=== PATIENT | female | born 1940 | race Caucasian/White ===

== ENCOUNTER 2017-11-15 13:18 | Observation (INO) | payer MEDICARE ==
[~2017-11-15] VITALS: Ht 177.8 cm; Wt 67.6 kg
[~2017-11-15 13:18] MED LIST: ADVIL MIGRAI200 M1 PO; ALLEGRA-D 1212 HOUR PO; ALLEGRA-D 2424 HOUR PO; AMOX/K CLAV500 MG PO; ASPIRIN81 MG PO; AUGMENTIN500TAB PO; AURALGAN OT; BACTRIM DS1 TAB PO; CIPROFLOXACIN500 M1 PO; CIPROFLOXACN250 MG PO; DAIRY DIGES4500 UNI1 PO; FLONASE NASAL50 MCG; FOSAMAX70 MG PO; GINKOBA40 MG PO; LASIX 10 MG10 MG/TA1 PO; LORTAB5 PO; LOTRISONE TOP; MEDDOSEPAK OR; MEDDOSEPAK PO; MICRO-K10 ME1 PO; MIRAPEX0.5 MG PO; MOMETASONE0.1 % EX; OGEN0.625 MG PO; OGEN1.25 MG PO; OMEPRAZOLE40 MG PO; OXYCO/APAP1 TA5 OR; PERCOCET 5/325M1 TAB PO; PRILOSEC20 MG PO; PRILOSEC40 MG PO; TRAMADOL HCL50 MG PO; VITAMI16; VITAMIN B-1100 M1 PO; VITAMIN C1000 MG PO; VITAMIN E400 UNIT PO; XANAX0.25 MG PO; ZANTAC25 MG PO; ZITHROMAX250 MG PO; ZPAK PO; ZYRTEC-D AL1 OR; ZYRTEC10 M3 OR; [UNRECOGNIZED DRUG - OTHER] PO
--- NOTE | 2017-11-15 13:35 | NUR ---
PT TO ROOM 10 VIA WHEELCHAIR.
--- NOTE | 2017-11-15 13:55 | NUR ---
VERBAL ORDER FROM DR DALY TO GIVE 5 MG OF LABETOLOL DUE TO CURRENT BP.
[2017-11-15 13:59] LABS: HEMOGLOBIN 15.1 g/dl (12.0-16.0); IMMATURE GRANULOCYTES 0.3 % (0.0-1.0); MEAN CELL VOLUME 97.6 fL CALC (80.0-100.0); MEAN CORPUSCULAR HGB 33.5 pG CALC (26.0-32.0); MEAN CORPUSCULAR HGB CONC 34.3 g/L CALC (32.0-36.0); NEUT# 6.65 thou/uL (2.00-7.15); RED BLOOD COUNT 4.51 mill/uL (4.20-5.60); RED CELL DISTRI WIDTH 12.2 % (11.5-15.5)
--- NOTE | 2017-11-15 14:04 | NUR ---
WILL HOLD LABETOLOL 5 MG DUE TO BP 156/77. NOTIFIED.
[2017-11-15 14:16] LABS: ANION GAP 19 (6-22 (CALC)); BUN 20 mg/dL (8-23); BUN/CREATININE RATIO 17 (12-20 (CALC)); CARBON DIOXIDE 24 mmol/l (22-30); CHLORIDE 106 mmol/l (95-108); CREATININE 1.1 mg/dL (0.5-1.0); GFR 48 ML/MIN (>=60 (CALC)); GFR FOR AFR.AMER. 58 ML/MIN (>=60 (CALC)); POTASSIUM 3.6 mmol/l (3.5-5.1); SODIUM 146 mmol/l (137-146)
--- NOTE | 2017-11-15 14:25 | NUR ---
PT AMBULATED TO THE BATHROOM WITH A STEADY GAIT TO OBTAIN URINE SMAPLE.
--- NOTE | 2017-11-15 15:05 | NUR ---
SBAR PRINTED TO FLOOR
[2017-11-15] MEDS ORDERED: ESTROPIPATE1.5 MG PO (15:17)
[2017-11-15 15:26] LABS: URINE BILIRUBIN - DIPSTICK NEGATIVE (NEGATIVE); URINE BLOOD DIPSTICK NEGATIVE (NEGATIVE); URINE COLOR YELLOW; URINE GLUCOSE - DIPSTICK NEGATIVE (NEGATIVE); URINE KETONE NEGATIVE (NEGATIVE); URINE LEUK ESTERASE NEGATIVE (NEGATIVE); URINE NITRITE - DIPSTICK NEGATIVE (Negative); URINE PH 5.5 (4.5-8.0); URINE PROTEIN - DIPSTICK NEGATIVE (NEG-TRACE); URINE SPECIFIC GRAVITY 1.015; URINE UROBILINOGEN - DIPSTICK 0.2 E.U./dL (0.2)
[2017-11-15 15:27] LABS: URINE CLARITY CLEAR
--- NOTE | 2017-11-15 15:30 | NUR ---
PT DENIES ANY PAIN OR SOB AT THIS TIME AND IS AWARE OF PENDING ADMISSION. CALL FAIR WITHIN REACH, WILL CONTINUE TO MONITOR.
--- NOTE | 2017-11-15 15:50 | NUR ---
REPORT CALLED TO NILS WHITE.
--- NOTE | 2017-11-15 15:58 | NUR ---
Admission Note Report Given to: SBAR PRINTED TO FLOOR Transported by: Wheelchair X Stretcher Transported with: X Nurse Transporter X Patent IV O2 X Stave Cutting Supervisor
--- NOTE | 2017-11-15 16:15 | NUR ---
PT CAME FROM ER VIA STRETCHER BY NILS PATEL. PATIENT ACCOUNT REPRESENTATIVE IN ROOM TO ASSIST PT TO BED.
[2017-11-15 16:16] VITALS: BP 169/94
--- NOTE | 2017-11-15 16:45 | NUR ---
ORIENTED PT TO CALL LIGHT AND SAFETY PRECAUTIONS REINFORCED. PT VERBALIZED UNDERSTANDING. CALL LIGHT IN REACH.
--- NOTE | 2017-11-15 18:14 | NUR ---
ASSESSMENT DONE AND TELE IN PLACE. RESPS EVEN AND UNLABORED. # 22 LAC THAT APPEARS HEALTHY. O2 AT 2L/MIN VIA NC.
--- NOTE | 2017-11-15 19:20 | NUR ---
REPORT RECEIVED FROM NILS WHITE;PT RESTING AT BEDSIDE WITH VISITOR;INTRODUCED SELF TO PT AND POC DICUSSED;PT VOICES NO NEEDS OR DISCOMFORTS;PT ENCOURAGED TO EXPRESS CONCERNS;WILL CONTINUE TO MONITOR
[2017-11-15 19:35] VITALS: BP 170/83
--- NOTE | 2017-11-15 20:30 | NUR ---
PT RESTING IN SEMI FOWLERS POSITION;A&O X3;RESPIRATIONS EVEN AND UNLABORED ON HUM OXYGEN @ 2L VIA NC,CLEAR/DIMINISHED LUNG SOUNDS NOTED;PT REPORTS NOT BEING O2 DEPENDENT;ABDOMEN SOFT ON PALPATION AND ACTIVE IN ALL 4 QUADS;STRONG PEDAL PULSES;TELE MONITOR IN PLACE;#22G TO LAC FLUSHED AND PATENT,SITE APPEARS HEALTHY;CURRENT BP 105/66 HR 80;@2100 APRESOLINE 25MG PO HELD AT THIS TIME;SKIN INTACT;PT VOICES NO COMPLAINTS OF PAIN OR DISCOMFORTS;ENCOURAGED TO CALL FOR ASSISTANCE IF NEEDED;CALL LIGHT IN REACH;WILL CONTINUE TO MONITOR
--- NOTE | 2017-11-15 22:00 | NUR ---
CURRENT BP 86/59 HR 69;@2200 CLONIDINE 0.2MG PO HELD
[2017-11-16 00:10] VITALS: BP 90/58
--- NOTE | 2017-11-16 00:10 | NUR ---
PT RESTING IN BED WITH INEZ MCCLELLAND AT BEDSIDE OBTAINING VS;CURRENT MANUAL BP 90/58 HR 62;TELE MONITOR IN PLACE;PT VOICES NO COMPLAINTS OF PAIN;RESPIRATIONS EVEN AND UNLABORED ON HUM OXYGEN @ 2L;PT ENCOURAGED TO CALL FOR ASSISTANCE IF NEEDED;CALL LIGHT WITHIN REACH;WILL CONTINUE TO MONITOR
[2017-11-16 04:45] VITALS: BP 100/64
--- NOTE | 2017-11-16 05:10 | NUR ---
PT APPEARS TO BE SLEEPING IN SUPINE POSITION,WAKES EASILY;PT DENIES ANY PAIN OR DISCOMFORTS;TELE MONITOR IN PLACE;RESPIRATIONS EVEN AND UNLABORED ON OXYGEN;WILL CONTINUE TO MONITOR
--- NOTE | 2017-11-16 06:28 | NUR ---
PT TO XRAY VIA WC IN STABLE CONDITION ACCOMPANIED BY INEZ BINGHAM
[2017-11-16 06:41] LABS: HEMOGLOBIN 14.4 g/dl (12.0-16.0); IMMATURE GRANULOCYTES 0.2 % (0.0-1.0); MEAN CORPUSCULAR HGB 33.5 pG CALC (26.0-32.0); MEAN CORPUSCULAR HGB CONC 33.5 g/L CALC (32.0-36.0); NEUT# 4.36 thou/uL (2.00-7.15); RED BLOOD COUNT 4.3 mill/uL (4.20-5.60); RED CELL DISTRI WIDTH 12.4 % (11.5-15.5)
[2017-11-16 06:55] LABS: ALBUMIN 4.2 g/dL (3.2-5.0); BILIRUBIN, TOTAL 0.6 mg/dL (0.0-1.4); CHOLESTEROL HDL RATIO 3.7 (<4.4 (CALC)); CREATININE 1.3 mg/dL (0.5-1.0); TOTAL PROTEIN 7.1 g/dL (6.3-8.2)
[2017-11-16 07:35] VITALS: BP 84/57
--- NOTE | 2017-11-16 07:35 | NUR ---
PT RESTING IN BED, ALERT AND OREITNED, COMPLAINTS OF MILD HEADACHE WILL MEDICATE ORDERED, AM ASSESSMENT COMPLETED SEE INTERVENTIONS TELE INTAKE AND MONITOR READING SR RATE IN THE 60'S SKIN WARM AND DRY, PT ASYMPTOMATICALLY HYPOTENSIVE, WILL NOTIFY MD ON AM ROUNDS, RLEATED TO SCHEDULED ANTIHYPERTENSIVES, SALINE LOCK INTACT IN LAC, TOLERATING NC AT 2L, PT DENIES WEARING O2 AT HOME AND DENIES SOB, O2 REMAINS IN USE RELATED TO CARDIAC PROTOCOL, CALLBELL WITHIN REACH, SAFETY MEASURES REINFORCED, WILL CONTINUE TO MONITOR.
--- NOTE | 2017-11-16 09:45 | NUR ---
PT AMBULATES TO BATHROOM WITH STRONG STEADY GAIT INDEPENDENTLY, CONTINENT OF CHENG URINE AND PROVIDES SELF ARTHUR CARE, BACK TO BED AND CALL FAIR WITHIN REACH, AWARE OF BP AND APRESOLINE AND CATAPRES CURRENTLY ON HOLD, WILL CONTINUE TO MONITOR
[2017-11-16 11:00] VITALS: BP 96/51
--- NOTE | 2017-11-16 13:50 | NUR ---
PT RESTING IN BED, OFFERS NO NEW COMPLAINTS, COMFORT MEASURES PROVIDED, WILL CONTINUE TO MONITOR
--- NOTE | 2017-11-16 14:46 | NUR ---
PT RESTING IN BED, STATES HEADACHE MUCH IMPROVED, CALL FAIR WITHIN REAC
[2017-11-16 16:00] VITALS: BP 108/52
--- NOTE | 2017-11-16 17:07 | NUR ---
PT RESTING IN BED, AMBULATES IN ROOM AND TO BATHROOM WITH STRONG STEADY GAIT, READING MAGAZINE INTERITTENLY, CONTINUES TO DENY HEADACHE, CALL FAIR WITHIN REACH
[2017-11-16] MEDS ORDERED: ALPRAZOLAM0.5 MG PO (17:43)
--- NOTE | 2017-11-16 18:28 | NUR ---
IN TO SEE PATIENT EARLIER AND D/C ORDERS GIVEN, PT DRESSED SELF AND D/C INSTRUCTINS DISCUSSED IV SITE REMOVED INTACT EARLIER, PT TOLERATED WELL AND ALL QUESTIONS ANSWERED. AWAITING W/C TO TRASNPORT TO RIDE WAITING DOWNSTAIRS.
--- NOTE | 2017-11-16 18:33 | NUR ---
Discharge instructions given. Patient verbalizes understanding of same. Discharged in stable condition via Wheelchair to Home with family. All belongings sent with pt. SCRIPT FOR XANAX SENT WITH PT.
== END 2017-11-16 18:33 | disposition home or self-care (01) ==
LOC: ED 13:18 → ED-I 14:50 → ED 15:05 → MS2 15:06
PROVIDERS: Family Medicine; ADMIT Internal Medicine Geriatric Medicine; ATTEND Internal Medicine Geriatric Medicine
DX: R07.89 Other chest pain (principal); R42 Dizziness and giddiness; I10 Essential (primary) hypertension; K21.9 Gastro-esophageal reflux disease without esophagitis; F41.9 Anxiety disorder, unspecified; F32.9 Major depressive disorder, single episode, unspecified; M19.90 Unspecified osteoarthritis, unspecified site; E03.9 Hypothyroidism, unspecified; K27.9 Peptic ulcer, site unspecified, unspecified as acute or chronic, without hemorrhage or perforation; M54.5 Low back pain; G89.29 Other chronic pain

== ENCOUNTER 2017-11-29 01:08 | Emergency (ER) | payer MEDICARE ==
[~2017-11-29] VITALS: Ht 177.8 cm; Wt 68.2 kg
[~2017-11-29 01:08] MED LIST changes: +ALPRAZOLAM0.5 MG PO; +ESTROPIPATE1.5 MG PO
[2017-11-29 01:55] LABS: INFLUENZA A NONE DETECTED (NONE DETECT); INFLUENZA B NONE DETECTED (NONE DETECT)
[2017-11-29 02:09] LABS: HEMATOCRIT 37.6 % (37.0-47.0); HEMOGLOBIN 12.7 g/dl (12.0-16.0); IMMATURE GRANULOCYTES 0.3 % (0.0-1.0); MEAN CELL VOLUME 98.4 fL CALC (80.0-100.0); MEAN CORPUSCULAR HGB 33.2 pG CALC (26.0-32.0); MEAN CORPUSCULAR HGB CONC 33.8 g/L CALC (32.0-36.0); NEUT# 8.51 thou/uL (2.00-7.15); RED BLOOD COUNT 3.82 mill/uL (4.20-5.60); RED CELL DISTRI WIDTH 12.3 % (11.5-15.5)
[2017-11-29 02:19] LABS: ALBUMIN 3.9 g/dL (3.2-5.0); ALKALINE PHOSPHATASE 115 u/l (38-126); ANION GAP 17 (6-22 (CALC)); BILIRUBIN, TOTAL 0.4 mg/dL (0.0-1.4); BUN 18 mg/dL (8-23); BUN/CREATININE RATIO 19 (12-20 (CALC)); CARBON DIOXIDE 23 mmol/l (22-30); CHLORIDE 108 mmol/l (95-108); GFR 54 ML/MIN (>=60 (CALC)); GFR FOR AFR.AMER. > 60 ML/MIN (>=60 (CALC)); POTASSIUM 3.7 mmol/l (3.5-5.1); SGOT/AST 23 u/l (9-36); SGPT/ALT 19 u/l (11-66); SODIUM 144 mmol/l (137-146); TOTAL PROTEIN 6.7 g/dL (6.3-8.2)
[2017-11-29 02:33] LABS: MYOGLOBIN 40 ng/mL (0 - 62)
[2017-11-29] MEDS ORDERED: CEPHALEXIN500 MG PO (03:05)
[2017-11-29] MEDS ORDERED: ROBITUSSIN AC10 ML PO (03:05)
[2017-11-29] MEDS ORDERED: FLONASE AL50 MCG/ACT (03:52)
[2017-11-29 04:09] VITALS: BP 138/75
== END 2017-11-29 04:18 | disposition home or self-care (01) ==
LOC: ED 01:08
PROVIDERS: Emergency Medicine
DX: J06.9 Acute upper respiratory infection, unspecified (principal); I10 Essential (primary) hypertension; R05 Cough; R50.9 Fever, unspecified

== ENCOUNTER 2018-02-14 11:19 | Inpatient (IN) | payer MEDICARE ==
[~2018-02-14] VITALS: Ht 167.6 cm; Wt 62.8 kg
[~2018-02-14 11:19] MED LIST changes: +ADULT ASPIRIN R81 MG PO; +CALCIUM/D600 M3 PO; +CEPHALEXIN500 MG PO; +E 10001000 UNIT PO; +FLONASE AL50 MCG/ACT; +GINKGO BILOB60 MG PO; +LASIX 20 MG TAB20 MG PO; +ROBITUSSIN AC10 ML PO; +VITAMIN A PO
[2018-02-14 11:55] VITALS: BP 107/69
[2018-02-14 12:40] LABS: HEMATOCRIT 30.1 % (37.0-47.0); HEMOGLOBIN 9.5 g/dl (12.0-16.0); IMMATURE GRANULOCYTES 1.3 % (0.0-1.0); MEAN CELL VOLUME 97.7 fL CALC (80.0-100.0); MEAN CORPUSCULAR HGB 30.8 pG CALC (26.0-32.0); MEAN CORPUSCULAR HGB CONC 31.6 g/L CALC (32.0-36.0); NEUT# 6.58 thou/uL (2.00-7.15); RED BLOOD COUNT 3.08 mill/uL (4.20-5.60); RED CELL DISTRI WIDTH 13.9 % (11.5-15.5)
[2018-02-14 12:54] LABS: ALBUMIN 3.8 g/dL (3.2-5.0); ALKALINE PHOSPHATASE 126 u/l (38-126); ANION GAP 19 (6-22 (CALC)); BILIRUBIN, TOTAL 0.9 mg/dL (0.0-1.4); BUN 14 mg/dL (8-23); BUN/CREATININE RATIO 15 (12-20 (CALC)); CARBON DIOXIDE 25 mmol/l (22-30); CHLORIDE 99 mmol/l (95-108); GFR 53 ML/MIN (>=60 (CALC)); GFR FOR AFR.AMER. > 60 ML/MIN (>=60 (CALC)); POTASSIUM 4.5 mmol/l (3.5-5.1); SGOT/AST 16 u/l (9-36); SGPT/ALT 24 u/l (11-66); SODIUM 139 mmol/l (137-146); TOTAL PROTEIN 7.7 g/dL (6.3-8.2)
[2018-02-14 14:03] LABS: URINE BILIRUBIN - DIPSTICK NEGATIVE (NEGATIVE); URINE BLOOD DIPSTICK NEGATIVE (NEGATIVE); URINE COLOR YELLOW; URINE GLUCOSE - DIPSTICK NEGATIVE (NEGATIVE); URINE KETONE NEGATIVE (NEGATIVE); URINE LEUK ESTERASE SMALL (Negative); URINE NITRITE - DIPSTICK POSITIVE (Negative); URINE PH 5.5 (4.5-8.0); URINE PROTEIN - DIPSTICK NEGATIVE (NEG-TRACE); URINE UROBILINOGEN - DIPSTICK 0.2 E.U./dL (0.2)
[2018-02-14 14:07] LABS: URINE CLARITY CLOUDY
[2018-02-14 14:08] LABS: URINE AMORPH SEDIMENT MANY hpf (NONE-FEW); URINE BACTERIA MODERATE hpf; URINE EPITHELIAL CELLS MODERATE EPI/hpf (0-FEW)
[2018-02-14] MEDS ORDERED: METOPROL TAR25 M1 PO (14:27)
[2018-02-14] MEDS ORDERED: HYDROCO/APAP1 T11 PO (14:28)
[2018-02-14] MEDS ORDERED: ALPRAZOLAM ER0.5 MG PO (14:30)
[2018-02-14 15:23] VITALS: BP 111/59
[2018-02-14 18:26] LABS: HEMATOCRIT 30.8 % (37.0-47.0); HEMOGLOBIN 9.6 g/dl (12.0-16.0); IMMATURE GRANULOCYTES 0.4 % (0.0-1.0); MEAN CELL VOLUME 98.1 fL CALC (80.0-100.0); MEAN CORPUSCULAR HGB 30.6 pG CALC (26.0-32.0); MEAN CORPUSCULAR HGB CONC 31.2 g/L CALC (32.0-36.0); NEUT# 6.05 thou/uL (2.00-7.15); RED BLOOD COUNT 3.14 mill/uL (4.20-5.60); RED CELL DISTRI WIDTH 14.1 % (11.5-15.5)
[2018-02-14 19:01] LABS: ANION GAP 19 (6-22 (CALC)); BUN 13 mg/dL (8-23); BUN/CREATININE RATIO 15 (12-20 (CALC)); CARBON DIOXIDE 26 mmol/l (22-30); CHLORIDE 101 mmol/l (95-108); CREATININE 0.8 mg/dL (0.5-1.0); GFR > 60 ML/MIN (>=60 (CALC)); GFR FOR AFR.AMER. > 60 ML/MIN (>=60 (CALC)); POTASSIUM 4.3 mmol/l (3.5-5.1); SODIUM 141 mmol/l (137-146)
[2018-02-14 20:26] VITALS: BP 129/77
[2018-02-14 22:15] VITALS: BP 138/57
[2018-02-14 23:00] VITALS: BP 114/57
[2018-02-15] VITALS (7 sets, daily range): BP systolic 122–147; BP diastolic 62–81
[2018-02-15 05:28] LABS: HEMATOCRIT 34.3 % (37.0-47.0); HEMOGLOBIN 11.1 g/dl (12.0-16.0); IMMATURE GRANULOCYTES 0.6 % (0.0-1.0); MEAN CORPUSCULAR HGB 30.4 pG CALC (26.0-32.0); MEAN CORPUSCULAR HGB CONC 32.4 g/L CALC (32.0-36.0); NEUT# 5.31 thou/uL (2.00-7.15); RED BLOOD COUNT 3.65 mill/uL (4.20-5.60); RED CELL DISTRI WIDTH 16.3 % (11.5-15.5)
[2018-02-15 05:48] LABS: ALBUMIN 3.3 g/dL (3.2-5.0); ALKALINE PHOSPHATASE 122 u/l (38-126); ANION GAP 18 (6-22 (CALC)); BILIRUBIN, TOTAL 1.8 mg/dL (0.0-1.4); BUN 13 mg/dL (8-23); BUN/CREATININE RATIO 15 (12-20 (CALC)); CARBON DIOXIDE 27 mmol/l (22-30); CHLORIDE 102 mmol/l (95-108); CREATININE 0.8 mg/dL (0.5-1.0); GFR > 60 ML/MIN (>=60 (CALC)); GFR FOR AFR.AMER. > 60 ML/MIN (>=60 (CALC)); POTASSIUM 4.7 mmol/l (3.5-5.1); SGOT/AST 17 u/l (9-36); SGPT/ALT 24 u/l (11-66); SODIUM 142 mmol/l (137-146); TOTAL PROTEIN 6.8 g/dL (6.3-8.2)
[2018-02-16 00:59] VITALS: BP 139/68
[2018-02-16 04:55] VITALS: BP 131/72
[2018-02-16 07:31] VITALS: BP 111/65
[2018-02-16 09:34] VITALS: BP 111/65
[2018-02-17] MEDS ORDERED: AUGMENTIN875TAB PO (00:25)
== END 2018-02-16 12:35 | disposition home or self-care (01) | DRG 812 ==
LOC: MS2 11:19
PROVIDERS: ADMIT Internal Medicine Geriatric Medicine; ATTEND Internal Medicine Geriatric Medicine
PROC: 30233N1 Transfusion of Nonautologous Red Blood Cells into Peripheral Vein, Percutaneous Approach (ICD-10-PCS; principal; 2018-02-14)
DX: D64.9 Anemia, unspecified (principal); I48.91 Unspecified atrial fibrillation; R06.02 Shortness of breath; R53.1 Weakness; R42 Dizziness and giddiness; R07.89 Other chest pain; I10 Essential (primary) hypertension; I25.10 Atherosclerotic heart disease of native coronary artery without angina pectoris; M19.90 Unspecified osteoarthritis, unspecified site; K27.9 Peptic ulcer, site unspecified, unspecified as acute or chronic, without hemorrhage or perforation; K21.9 Gastro-esophageal reflux disease without esophagitis; E03.9 Hypothyroidism, unspecified; F41.9 Anxiety disorder, unspecified; M54.9 Dorsalgia, unspecified; Z95.5 Presence of coronary angioplasty implant and graft; Z95.828 Presence of other vascular implants and grafts
CPT/HCPCS: J1650; P9016

== ENCOUNTER 2018-02-16 22:54 | Emergency (ER) | payer MEDICARE ==
[~2018-02-16] VITALS: Ht 167.6 cm; Wt 67.0 kg
[~2018-02-16 22:54] MED LIST changes: +ALPRAZOLAM ER0.5 MG PO; +HYDROCO/APAP1 T11 PO; +METOPROL TAR25 M1 PO
[2018-02-16 23:44] LABS: HEMATOCRIT 34.2 % (37.0-47.0); HEMOGLOBIN 11.2 g/dl (12.0-16.0); IMMATURE GRANULOCYTES 0.4 % (0.0-1.0); MEAN CELL VOLUME 93.2 fL CALC (80.0-100.0); MEAN CORPUSCULAR HGB 30.5 pG CALC (26.0-32.0); MEAN CORPUSCULAR HGB CONC 32.7 g/L CALC (32.0-36.0); NEUT# 7.66 thou/uL (2.00-7.15); RED BLOOD COUNT 3.67 mill/uL (4.20-5.60); RED CELL DISTRI WIDTH 15.6 % (11.5-15.5)
[2018-02-17 00:02] LABS: ALBUMIN 3.5 g/dL (3.2-5.0); ALKALINE PHOSPHATASE 102 u/l (38-126); ANION GAP 20 (6-22 (CALC)); BILIRUBIN, TOTAL 1.4 mg/dL (0.0-1.4); BUN 10 mg/dL (8-23); BUN/CREATININE RATIO 13 (12-20 (CALC)); CARBON DIOXIDE 21 mmol/l (22-30); CHLORIDE 102 mmol/l (95-108); CREATININE 0.8 mg/dL (0.5-1.0); GFR > 60 ML/MIN (>=60 (CALC)); GFR FOR AFR.AMER. > 60 ML/MIN (>=60 (CALC)); POTASSIUM 4.6 mmol/l (3.5-5.1); SGOT/AST 26 u/l (9-36); SGPT/ALT 26 u/l (11-66); SODIUM 139 mmol/l (137-146); TOTAL PROTEIN 7.4 g/dL (6.3-8.2)
[2018-02-17] MEDS ORDERED: AUGMENTIN875TAB PO (00:25)
[2018-02-17 00:40] VITALS: BP 135/66
== END 2018-02-17 00:40 | disposition home or self-care (01) ==
LOC: ED 22:54
PROVIDERS: Family Medicine
DX: J40 Bronchitis, not specified as acute or chronic (principal); I10 Essential (primary) hypertension; E78.5 Hyperlipidemia, unspecified; M19.90 Unspecified osteoarthritis, unspecified site; Z95.5 Presence of coronary angioplasty implant and graft

== ENCOUNTER 2021-10-20 10:01 | Emergency (ER) | payer MEDICARE ==
[~2021-10-20] VITALS: Ht 167.6 cm; Wt 70.0 kg
[~2021-10-20 10:01] MED LIST changes: +AUGMENTIN875TAB PO
[2021-10-20] MEDS ORDERED: LOSARTAN POTASS50 MG PO (10:22)
[2021-10-20] MEDS ORDERED: ATORVASTATIN CA10 MG PO (10:23)
[2021-10-20] MEDS ORDERED: ASPIRIN81 MG PO (10:24)
[2021-10-20 10:40] LABS: HEMATOCRIT 42.5 % (37.0-47.0); HEMOGLOBIN 13.7 g/dl (12.0-16.0); IMMATURE GRANULOCYTES 0.1 % (0.0-5.0); MEAN CORPUSCULAR HGB 32.5 pG CALC (26.0-32.0); MEAN CORPUSCULAR HGB CONC 32.2 g/dL CAL (32.0-36.0); NEUT# 4.72 thou/uL (2.00-7.15); RED BLOOD COUNT 4.21 mill/uL (4.20-5.60); RED CELL DISTRI WIDTH 13.6 % (11.5-15.5)
[2021-10-20 10:55] LABS: ALBUMIN 4.1 g/dL (3.2-5.0); ALKALINE PHOSPHATASE 126 u/l (38-126); ANION GAP 10 (6-22 (CALC)); BILIRUBIN, TOTAL 0.8 mg/dL (0.0-1.4); BUN 19 mg/dL (8-23); BUN/CREATININE RATIO 18 (12-20 (CALC)); CARBON DIOXIDE 27 mmol/l (22-30); CHLORIDE 107 mmol/l (95-108); GFR 53 ML/MIN (>=60 (CALC)); GFR FOR AFR.AMER. > 60 ML/MIN (>=60 (CALC)); POTASSIUM 3.9 mmol/l (3.5-5.1); SGOT/AST 32 u/l (9-36); SODIUM 140 mmol/l (137-146); TOTAL PROTEIN 7.4 g/dL (6.3-8.2)
[2021-10-20 11:05] LABS: INTERNATIONAL NORMALIZED RATIO 0.9 RATIO (0.7-1.3); PROTHROMBIN TIME 9.5 SECONDS (9.0-12.5)
[2021-10-20 13:25] VITALS: BP 140/65
[2021-10-20] MEDS ORDERED: MECLIZINE25 MG PO (13:35)
== END 2021-10-20 13:25 | disposition home or self-care (01) ==
LOC: ED 10:01
PROVIDERS: Family Medicine
DX: R42 Dizziness and giddiness (principal); I10 Essential (primary) hypertension; I25.10 Atherosclerotic heart disease of native coronary artery without angina pectoris; E78.5 Hyperlipidemia, unspecified; Z95.5 Presence of coronary angioplasty implant and graft
CPT/HCPCS: Q9967

== ENCOUNTER 2023-10-11 11:49 | Emergency (ER) | payer MEDICARE ==
[~2023-10-11] VITALS: Ht 167.6 cm; Wt 65.7 kg
[2023-10-11] VITALS (8 sets, daily range): BP systolic 132–170; BP diastolic 66–114
[~2023-10-11 11:49] MED LIST changes: +ATORVASTATIN CA10 MG PO; +LOSARTAN POTASS50 MG PO; +MECLIZINE25 MG PO
[2023-10-11] MEDS ORDERED: PREDNISONE20 MG PO (13:29)
== END 2023-10-11 13:41 | disposition home or self-care (01) ==
LOC: ED 11:49
DX: M17.12 Unilateral primary osteoarthritis, left knee (principal); I10 Essential (primary) hypertension; E78.5 Hyperlipidemia, unspecified; Z95.5 Presence of coronary angioplasty implant and graft; R09.89 Other specified symptoms and signs involving the circulatory and respiratory systems

== ENCOUNTER 2024-11-14 10:33 | Emergency (ER) | payer MEDICARE ==
[2024-11-14] VITALS (10 sets, daily range): BP systolic 124–164; BP diastolic 67–101
[~2024-11-14] VITALS: Ht 167.6 cm; Wt 63.5 kg
[~2024-11-14 10:33] MED LIST changes: +PREDNISONE20 MG PO
[2024-11-14] MEDS ORDERED: SODIUM CHLORIDE 0.9% 1,000 ML IV ONE (10:50)
[2024-11-14] MEDS ORDERED: ONDANSETRON HCl 4 MG/2 ML SDV IV ONE (10:50)
[2024-11-14 11:11] LABS: URINE BILIRUBIN - DIPSTICK Negative (NEGATIVE); URINE BLOOD DIPSTICK Negative (NEGATIVE); URINE COLOR Yellow; URINE GLUCOSE - DIPSTICK Negative (NEGATIVE); URINE KETONE Negative (NEGATIVE); URINE LEUK ESTERASE Negative (NEGATIVE); URINE NITRITE - DIPSTICK Negative (Negative); URINE PROTEIN - DIPSTICK Trace mg/dL (NEG-TRACE); URINE SPECIFIC GRAVITY 1.025; URINE UROBILINOGEN - DIPSTICK 0.2 E.U./dL (0.2)
[2024-11-14 11:14] LABS: BASO% 0.1 % (0-3); EOS% 0.7 % (0-8); HEMOGLOBIN 14.8 g/dl (12.0-16.0); IMMATURE GRANULOCYTES 0.1 % (0.0-5.0); LYMPH% 14.3 % (15-41); MEAN CELL VOLUME 100.2 fL CALC (80.0-100.0); MEAN CORPUSCULAR HGB CONC 32.9 g/dL CAL (32.0-36.0); MONO% 6.9 % (2-13); NEUT# 15.79 thou/uL (2.00-7.15); NEUT% 77.9 % (42-76); RED BLOOD COUNT 4.49 mill/uL (4.20-5.60); RED CELL DISTRI WIDTH 12.7 % (11.5-15.5)
[2024-11-14 11:23] LABS: ALBUMIN 4.6 g/dL (3.2-5.0); CREATININE 1.1 mg/dL (0.5-1.0); POTASSIUM 3.9 mmol/l (3.5-5.1); TOTAL PROTEIN 7.8 g/dL (6.3-8.2)
[2024-11-14 11:24] LABS: BILIRUBIN, TOTAL 1.9 mg/dL (0.02-1.3)
[2024-11-14] MEDS ORDERED: METRONIDAZOLE500 MG PO (13:47)
[2024-11-14] MEDS ORDERED: ZOFRAN4 MG/TAB PO (13:47)
[2024-11-14] MEDS ORDERED: AMOX/K CLAV875 M1 PO (13:47)
== END 2024-11-14 14:11 | disposition home or self-care (01) ==
LOC: ED 10:33
PROVIDERS: Family Medicine
DX: K52.9 Noninfective gastroenteritis and colitis, unspecified (principal); I10 Essential (primary) hypertension; E78.5 Hyperlipidemia, unspecified; J84.10 Pulmonary fibrosis, unspecified; Z95.5 Presence of coronary angioplasty implant and graft
CPT/HCPCS: J2405; Q9967